=== PATIENT | male | born 1945 | race Caucasian/White ===

== ENCOUNTER → 2016-06-14 20:10 | Outpatient (CLI) | payer OTHER ==
[2010-01-17 10:32] VITALS: BMI 21.6
[2016-06-16 10:19] LABS: HCV AB <0.1 (0.0-0.9)
== END | disposition home or self-care (01) ==
LOC: D.LABREF 20:10
PROVIDERS: Family Medicine
DX: Z11.59 Encounter for screening for other viral diseases (principal); M79.659 Pain in unspecified thigh